=== PATIENT | male | born 1955 | race Two or more races ===

== ENCOUNTER 2023-12-01 13:26 | Inpatient (IN) | payer MEDICAID ==
[~2023-12-01] VITALS: Ht 165.1 cm; Wt 82.2 kg
[2023-12-01] MEDS ORDERED: LevETIRAcetam 1,000 MG in DEXTROSE 5%-WATER 100 ML IV ONE (13:30)
[2023-12-01] MEDS ORDERED: SODIUM CHLORIDE 0.9% 100 ML ONE (13:35)
[2023-12-01] MEDS ORDERED: IOHEXOL 350 MG/ML 100 ML VIAL ONE (13:35)
[2023-12-01 14:23] LABS: PROTHROMBIN TIME 10.9 SEC (9.4-11.6)
[2023-12-01 14:34] LABS: TROPONIN I-HIGH SENSITIVITY 5 ng/L (<76)
[2023-12-01] MEDS: PHENYTOIN SODIUM 1,000 MG in SODIUM CHLORIDE 0.9% 150 ML IV ONE (14:44)
[2023-12-01 16:08] LABS: CHLORIDE 106 mmol/L (98-107); POTASSIUM 3.5 mmol/L (3.5-5.1); SODIUM SERUM 140 mmol/L (136-145)
[2023-12-01 16:09] LABS: ANION GAP 10 mmol/L (8-16); CALCIUM, TOTAL 9.9 mg/dL (8.8-10.5); CARBON DIOXIDE 24 mmol/L (22-29); CREATININE 0.96 mg/dL (0.60-1.30); GLOMERULAR FILTR. RATE CALC > 60 mL/min (>60); GLUCOSE,RANDOM 137 mg/dL (70-110); HEMATOCRIT 40.9 % (41-53); HEMOGLOBIN 13.8 g/dL (13.5-17.5); MEAN CORPUSCULAR HEMOGLOBIN 29.8 pg (26.0-34.0); MEAN CORPUSCULAR HGB CONC 33.7 G/dL (31.0-37.0); MEAN CORPUSCULAR VOLUME 88 fL (80-100); PHOSPHORUS 2.6 mg/dL (2.5-4.9); PLATELET COUNT (AUTO) 159 K/uL (150-450); RED BLOOD CELL COUNT(AUTO) 4.63 MIL/uL (4.50-5.90); RED CELL DISTRIBUTION WIDTH 13.6 % (11.5-14.5); UREA NITROGEN, BLOOD 14 mg/dL (7-18); WHITE BLOOD COUNT (AUTO) 5.2 K/uL (4.5-11.0)
[2023-12-01 16:10] LABS: ALANINE AMINOTRANSFERASE 21 U/L (12-78); ALBUMIN 3.1 g/dL (3.4-5.0); ALKALINE PHOSPHATASE 102 U/L (46-116); ASPARTATE AMINOTRANSFERASE 19 U/L (15-37); BASOPHILS % (AUTO) 0.7 % (0.0-2.0); BILIRUBIN,TOTAL 0.3 mg/dL (0.1-1.0); CHOL/HDL RATIO 2.3 (4.2-7.3); CHOLESTEROL 123 mg/dL (131-200); EOSINOPHILS % (AUTO) 2.4 % (1.0-6.0); HDL CHOLESTEROL 54 mg/dL (40-60); LDL CHOL (CALC.) 59 mg/dL (0-130); LYMPHOCYTES # (AUTO) 2.2 K/uL (1.0-4.8); LYMPHOCYTES % (AUTO) 41.3 % (22.0-44.0); MONOCYTES # (AUTO) 0.3 K/uL (0.1-1.0); MONOCYTES % (AUTO) 5.7 % (2.0-9.0); NEUTROPHILS # (AUTO) 2.6 K/uL (1.8-7.7); NEUTROPHILS % (AUTO) 49.9 % (40.0-70.0); TRIGLYCERIDES 52 mg/dL (15-150)
[2023-12-01 16:11] LABS: ALCOHOL, BLOOD (SERUM) < 3 mg/dL (0-10)
[2023-12-01] MEDS ORDERED: MAGNESIUM HYDROXIDE SUSPENSION 30 ML UDCUP PO PRN (16:15)
[2023-12-01] MEDS ORDERED: ACETAMINOPHEN 325 MG TABLET PO PRN (16:15)
[2023-12-01] MEDS ORDERED: ONDANSETRON HCL 4 MG/2 ML VIAL IVP ONE (16:15)
[2023-12-01] MEDS ORDERED: MORPHINE SULFATE 2 MG/ML SYRINGE IVP PRN (16:15)
[2023-12-01] MEDS ORDERED: LORazepam 2 MG/ML VIAL IVP ONE (16:15)
[2023-12-01] MEDS ORDERED: ONDANSETRON HCL 4 MG/2 ML VIAL IVP PRN (16:15)
[2023-12-01] MEDS ORDERED: BISACODYL 10 MG RECTAL RECTAL SUPPOSITORY PR PRN (16:15)
[2023-12-01] MEDS ORDERED: HYDR50CA7 PO (16:35)
[2023-12-01] MEDS ORDERED: AMLO-258 PO (16:35)
[2023-12-01] MEDS ORDERED: PHEN100C10 PO (16:35)
[2023-12-01] MEDS ORDERED: LISI-893 PO (16:35)
[2023-12-01] MEDS ORDERED: FINA-27 PO (16:35)
[2023-12-01] MEDS ORDERED: OLAN7.5T22 PO (16:35)
[2023-12-01] MEDS ORDERED: TAMS0.4C94 PO (16:35)
[2023-12-01] MEDS ORDERED: ATOR20TA PO (16:35)
[2023-12-01] MEDS: LORazepam 2 MG/ML VIAL IVP ONE ×2 (16:38→18:35)
[2023-12-01] MEDS: ONDANSETRON HCL 4 MG/2 ML VIAL IVP ONE (16:38)
[2023-12-01] MEDS: SODIUM CHLORIDE 0.9% 1,000 ML IV ONE ×2 (16:39)
[2023-12-01 16:45] LABS: PHENYTOIN (DILANTIN) 45.5 mcg/mL (10.0-20.0)
[2023-12-01 17:51] LABS: APPEARANCE,URINE CLEAR (CLEAR); BILIRUBIN,URINE NEGATIVE (NEGATIVE); COLOR,URINE LIGHT YELLOW (YELLOW); GLUCOSE, URINE (UA) NEGATIVE (NEGATIVE); KETONES,URINE NEGATIVE (NEGATIVE); LEUKOCYTE ESTERASE ,URINE LARGE (NEGATIVE); NITRATE,URINE NEGATIVE (NEGATIVE); OCCULT BLOOD,URINE TRACE (NEGATIVE); PROTEIN,URINE TRACE mg/dL (NEGATIVE); SPECIFIC GRAVITIY, URINE 1.034 (1.003-1.030); UROBILINOGEN,URINE <=1.0 mg/dL (<=1.0)
[2023-12-01 18:04] LABS: ALCOHOL, URINE DRUG SCREEN NEGATIVE (NEGATIVE); AMPHET/METH SCREEN,URINE NEGATIVE (NEGATIVE); BARBITURATE SCREEN, URINE NEGATIVE (NEGATIVE); BENZODIAZEPINES SCREEN,URINE NEGATIVE (NEGATIVE); CANNABINOID SCREEN,URINE NEGATIVE (NEGATIVE); COCAINE SCREEN,URINE NEGATIVE (NEGATIVE); METHADONE SCREEN, URINE NEGATIVE (NEGATIVE); OPIATE SCREEN,URINE NEGATIVE (NEGATIVE); PHENCYCLIDINE SCREEN,URINE NEGATIVE (NEGATIVE)
[2023-12-01 18:23] LABS: BACTERIA,URINE Many /HPF (None Seen); RBC,URINE 0-2 /HPF (0-2); WBC,URINE 26-50 /HPF (0-5)
[2023-12-01] MEDS: CefTRIAXone 1 GM/DEXTROSE 50 ML IV ONE (18:35)
[2023-12-01 20:02] LABS: TROPONIN I-HIGH SENSITIVITY 8 ng/L (<76)
[2023-12-01] MEDS: DOCUSATE SODIUM 100 MG CAPSULE PO SCH (20:28)
[2023-12-01 21:05] VITALS: BP 146/75; PULSE 79; RESP 18; TEMP 97.6; O2SAT 95
[2023-12-01] MEDS: HEPARIN SODIUM,PORCINE 5,000 UNITS/ML VIAL SQ SCH (23:40)
[2023-12-02] MEDS: LORazepam 2 MG/ML VIAL IVP ONE (01:29)
[2023-12-02 01:57] LABS: TROPONIN I-HIGH SENSITIVITY 12 ng/L (<76)
[2023-12-02 04:05] VITALS: BP 141/98; PULSE 96; RESP 20; TEMP 98; O2SAT 97
[2023-12-02 07:17] LABS: BASOPHILS % (AUTO) 0.5 % (0.0-2.0); EOSINOPHILS % (AUTO) 1.4 % (1.0-6.0); HEMATOCRIT 42.4 % (41-53); HEMOGLOBIN 14.6 g/dL (13.5-17.5); LYMPHOCYTES # (AUTO) 2.1 K/uL (1.0-4.8); LYMPHOCYTES % (AUTO) 27.7 % (22.0-44.0); MEAN CORPUSCULAR HEMOGLOBIN 30.1 pg (26.0-34.0); MEAN CORPUSCULAR HGB CONC 34.3 G/dL (31.0-37.0); MEAN CORPUSCULAR VOLUME 88 fL (80-100); MONOCYTES # (AUTO) 0.4 K/uL (0.1-1.0); MONOCYTES % (AUTO) 5.6 % (2.0-9.0); NEUTROPHILS # (AUTO) 4.8 K/uL (1.8-7.7); NEUTROPHILS % (AUTO) 64.8 % (40.0-70.0); PLATELET COUNT (AUTO) 154 K/uL (150-450); RED BLOOD CELL COUNT(AUTO) 4.83 MIL/uL (4.50-5.90); RED CELL DISTRIBUTION WIDTH 13.6 % (11.5-14.5); WHITE BLOOD COUNT (AUTO) 7.4 K/uL (4.5-11.0)
[2023-12-02 07:29] LABS: ANION GAP 11 mmol/L (8-16); CALCIUM, TOTAL 9.9 mg/dL (8.8-10.5); CARBON DIOXIDE 23 mmol/L (22-29); CHLORIDE 104 mmol/L (98-107); CREATININE 0.89 mg/dL (0.60-1.30); GLOMERULAR FILTR. RATE CALC > 60 mL/min (>60); GLUCOSE,RANDOM 92 mg/dL (70-110); POTASSIUM 3.5 mmol/L (3.5-5.1); SODIUM SERUM 138 mmol/L (136-145); UREA NITROGEN, BLOOD 9 mg/dL (7-18)
[2023-12-02 07:37] VITALS: BP 168/89; PULSE 83; RESP 19; TEMP 98.1; O2SAT 95
[2023-12-02] MEDS: PANTOPRAZOLE SODIUM 40 MG DR TABLET PO SCH (08:39)
[2023-12-02 09:31] VITALS: BP 161/96; PULSE 89; RESP 20; TEMP 98.3; O2SAT 96
[2023-12-02 11:02] LABS: PHENYTOIN (DILANTIN) 49.1 mcg/mL (10.0-20.0)
[2023-12-02 11:54] VITALS: BP 152/91; PULSE 86; RESP 18; TEMP 98.3; O2SAT 97
[2023-12-02] MEDS ORDERED: LORazepam 2 MG/ML VIAL IVP PRN (13:15)
[2023-12-02] MEDS: SODIUM CHLORIDE 0.9% 1,000 ML IV ONE (13:25)
[2023-12-02 19:31] VITALS: BP 165/93; PULSE 85; RESP 19; TEMP 97.9; O2SAT 95
[2023-12-03 00:40] VITALS: BP 156/89; PULSE 81; RESP 18; TEMP 98.3; O2SAT 92
[2023-12-03 03:30] VITALS: BP 157/92; PULSE 85; RESP 19; TEMP 98.5; O2SAT 94
[2023-12-03 07:12] VITALS: BP 151/92; PULSE 81; RESP 18; TEMP 98; O2SAT 98
[2023-12-03 08:33] LABS: BASOPHILS % (AUTO) 1.1 % (0.0-2.0); EOSINOPHILS % (AUTO) 2.7 % (1.0-6.0); HEMATOCRIT 42.1 % (41-53); HEMOGLOBIN 14.4 g/dL (13.5-17.5); LYMPHOCYTES # (AUTO) 2.5 K/uL (1.0-4.8); LYMPHOCYTES % (AUTO) 38.6 % (22.0-44.0); MEAN CORPUSCULAR HEMOGLOBIN 30.3 pg (26.0-34.0); MEAN CORPUSCULAR HGB CONC 34.3 G/dL (31.0-37.0); MEAN CORPUSCULAR VOLUME 88 fL (80-100); MONOCYTES # (AUTO) 0.5 K/uL (0.1-1.0); MONOCYTES % (AUTO) 7.5 % (2.0-9.0); NEUTROPHILS # (AUTO) 3.2 K/uL (1.8-7.7); NEUTROPHILS % (AUTO) 50.1 % (40.0-70.0); PLATELET COUNT (AUTO) 138 K/uL (150-450); RED BLOOD CELL COUNT(AUTO) 4.77 MIL/uL (4.50-5.90); RED CELL DISTRIBUTION WIDTH 13.5 % (11.5-14.5); WHITE BLOOD COUNT (AUTO) 6.4 K/uL (4.5-11.0)
[2023-12-03 08:43] LABS: ANION GAP 11 mmol/L (8-16); CALCIUM, TOTAL 9.6 mg/dL (8.8-10.5); CARBON DIOXIDE 22 mmol/L (22-29); CHLORIDE 102 mmol/L (98-107); CREATININE 0.95 mg/dL (0.60-1.30); GLOMERULAR FILTR. RATE CALC > 60 mL/min (>60); GLUCOSE,RANDOM 76 mg/dL (70-110); POTASSIUM 3.6 mmol/L (3.5-5.1); SODIUM SERUM 135 mmol/L (136-145); UREA NITROGEN, BLOOD 13 mg/dL (7-18)
[2023-12-03 12:07] VITALS: BP 148/90; PULSE 80; RESP 18; TEMP 98; O2SAT 95
[2023-12-03] MEDS: AmLODIPine BESYLATE 5 MG TABLET PO SCH (12:20)
[2023-12-03] MEDS: SODIUM CHLORIDE 0.9% 1,000 ML IV ONE (12:21)
[2023-12-03 14:54] VITALS: BP 129/74; PULSE 82; RESP 18; TEMP 98.3; O2SAT 98
[2023-12-03] MEDS: HYDROCODONE/ACETAMINOPHEN 5-325 MG TABLET PO PRN (20:08)
[2023-12-03 20:38] VITALS: BP 145/104; PULSE 82; RESP 19; TEMP 97.9; O2SAT 93
[2023-12-03] MEDS: LORazepam 2 MG/ML VIAL IM PRN (22:14)
[2023-12-04 00:26] VITALS: BP 151/91; PULSE 70; RESP 19; TEMP 98; O2SAT 93
[2023-12-04 07:06] LABS: BASOPHILS % (AUTO) 0.7 % (0.0-2.0); HEMATOCRIT 38.6 % (41-53); HEMOGLOBIN 13.5 g/dL (13.5-17.5); LYMPHOCYTES % (AUTO) 37.7 % (22.0-44.0); MEAN CORPUSCULAR HEMOGLOBIN 30.4 pg (26.0-34.0); MEAN CORPUSCULAR HGB CONC 34.9 G/dL (31.0-37.0); MEAN CORPUSCULAR VOLUME 87 fL (80-100); MONOCYTES # (AUTO) 0.4 K/uL (0.1-1.0); MONOCYTES % (AUTO) 8.5 % (2.0-9.0); NEUTROPHILS # (AUTO) 2.6 K/uL (1.8-7.7); NEUTROPHILS % (AUTO) 49.1 % (40.0-70.0); PLATELET COUNT (AUTO) 135 K/uL (150-450); RED BLOOD CELL COUNT(AUTO) 4.43 MIL/uL (4.50-5.90); RED CELL DISTRIBUTION WIDTH 13.4 % (11.5-14.5); WHITE BLOOD COUNT (AUTO) 5.2 K/uL (4.5-11.0)
[2023-12-04 07:24] LABS: ANION GAP 10 mmol/L (8-16); CALCIUM, TOTAL 9.9 mg/dL (8.8-10.5); CARBON DIOXIDE 23 mmol/L (22-29); CHLORIDE 103 mmol/L (98-107); CREATININE 0.98 mg/dL (0.60-1.30); GLOMERULAR FILTR. RATE CALC > 60 mL/min (>60); GLUCOSE,RANDOM 84 mg/dL (70-110); POTASSIUM 3.6 mmol/L (3.5-5.1); SODIUM SERUM 136 mmol/L (136-145); UREA NITROGEN, BLOOD 19 mg/dL (7-18)
[2023-12-04 07:40] VITALS: BP 132/81; PULSE 77; RESP 18; TEMP 98; O2SAT 99
[2023-12-04 07:53] LABS: PHENYTOIN (DILANTIN) 37.3 mcg/mL (10.0-20.0)
[2023-12-04] MEDS: SODIUM CHLORIDE 0.9% 1,000 ML IV SCH (10:50)
[2023-12-04 11:48] VITALS: BP 150/82; PULSE 73; RESP 18; TEMP 97.9; O2SAT 95
[2023-12-04 15:32] VITALS: BP 140/75; PULSE 80; RESP 19; TEMP 98; O2SAT 96
[2023-12-04 20:57] VITALS: BP 160/83; PULSE 77; RESP 18; TEMP 97.5; O2SAT 95
[2023-12-04] MEDS: ZOLPIDEM TARTRATE 5 MG TABLET PO PRN (21:08)
[2023-12-05] VITALS (8 sets, daily range): BP systolic 137–157; BP diastolic 58–95; PULSE 76–84; RESP 17–20; TEMP 97.5–98.2; O2SAT 95–97
[2023-12-05 09:14] LABS: BASOPHILS % (AUTO) 0.7 % (0.0-2.0); EOSINOPHILS % (AUTO) 3.1 % (1.0-6.0); HEMOGLOBIN 13.5 g/dL (13.5-17.5); LYMPHOCYTES # (AUTO) 1.6 K/uL (1.0-4.8); LYMPHOCYTES % (AUTO) 31.7 % (22.0-44.0); MEAN CORPUSCULAR HEMOGLOBIN 30.2 pg (26.0-34.0); MEAN CORPUSCULAR HGB CONC 34.6 G/dL (31.0-37.0); MEAN CORPUSCULAR VOLUME 87 fL (80-100); MONOCYTES # (AUTO) 0.4 K/uL (0.1-1.0); MONOCYTES % (AUTO) 7.3 % (2.0-9.0); NEUTROPHILS # (AUTO) 2.9 K/uL (1.8-7.7); NEUTROPHILS % (AUTO) 57.2 % (40.0-70.0); PLATELET COUNT (AUTO) 130 K/uL (150-450); RED BLOOD CELL COUNT(AUTO) 4.46 MIL/uL (4.50-5.90); RED CELL DISTRIBUTION WIDTH 13.6 % (11.5-14.5)
[2023-12-05 09:25] LABS: ANION GAP 11 mmol/L (8-16); CALCIUM, TOTAL 9.5 mg/dL (8.8-10.5); CARBON DIOXIDE 22 mmol/L (22-29); CHLORIDE 107 mmol/L (98-107); CREATININE 0.87 mg/dL (0.60-1.30); GLOMERULAR FILTR. RATE CALC > 60 mL/min (>60); GLUCOSE,RANDOM 88 mg/dL (70-110); POTASSIUM 3.8 mmol/L (3.5-5.1); SODIUM SERUM 140 mmol/L (136-145); UREA NITROGEN, BLOOD 17 mg/dL (7-18)
[2023-12-05] MEDS ORDERED: MELATONIN 3 MG TABLET PO SCH (11:00)
[2023-12-05] MEDS: CefTRIAXone 1 GM/DEXTROSE 50 ML IV SCH (12:23)
[2023-12-06] VITALS (10 sets, daily range): BP systolic 130–186; BP diastolic 69–97; PULSE 75–84; RESP 18–20; TEMP 97.5–98; O2SAT 94–97
[2023-12-06 06:36] LABS: GLUCOMETER DEV NAME(LOC) 5N.2C; GLUCOSE,POINT OF CARE 93 MG/DL (70-110)
[2023-12-06 06:48] LABS: BASOPHILS % (AUTO) 1.1 % (0.0-2.0); EOSINOPHILS % (AUTO) 4.4 % (1.0-6.0); HEMATOCRIT 36.2 % (41-53); HEMOGLOBIN 12.6 g/dL (13.5-17.5); LYMPHOCYTES # (AUTO) 1.6 K/uL (1.0-4.8); LYMPHOCYTES % (AUTO) 43.4 % (22.0-44.0); MEAN CORPUSCULAR HEMOGLOBIN 30.4 pg (26.0-34.0); MEAN CORPUSCULAR HGB CONC 34.8 G/dL (31.0-37.0); MEAN CORPUSCULAR VOLUME 87 fL (80-100); MONOCYTES # (AUTO) 0.3 K/uL (0.1-1.0); MONOCYTES % (AUTO) 7.5 % (2.0-9.0); NEUTROPHILS # (AUTO) 1.6 K/uL (1.8-7.7); NEUTROPHILS % (AUTO) 43.6 % (40.0-70.0); PLATELET COUNT (AUTO) 123 K/uL (150-450); RED BLOOD CELL COUNT(AUTO) 4.15 MIL/uL (4.50-5.90); RED CELL DISTRIBUTION WIDTH 13.8 % (11.5-14.5); WHITE BLOOD COUNT (AUTO) 3.8 K/uL (4.5-11.0)
[2023-12-06 06:58] LABS: ANION GAP 8 mmol/L (8-16); CALCIUM, TOTAL 9.5 mg/dL (8.8-10.5); CARBON DIOXIDE 22 mmol/L (22-29); CHLORIDE 108 mmol/L (98-107); CREATININE 0.79 mg/dL (0.60-1.30); GLOMERULAR FILTR. RATE CALC > 60 mL/min (>60); GLUCOSE,RANDOM 83 mg/dL (70-110); POTASSIUM 3.7 mmol/L (3.5-5.1); SODIUM SERUM 138 mmol/L (136-145); UREA NITROGEN, BLOOD 13 mg/dL (7-18)
[2023-12-06] MEDS: AmLODIPine BESYLATE 5 MG TABLET PO ONE (10:06)
[2023-12-06] MEDS ORDERED: CIPR250T6 PO (10:06)
[2023-12-06] MEDS ORDERED: LEVE250T81 PO (10:06)
[2023-12-06] MEDS: CloNIDine HCL 0.1 MG TABLET PO PRN (17:17)
[2023-12-06] MEDS: MELATONIN 5 MG TABLET PO PRN (21:41)
[2023-12-07] VITALS: BP 148/87; PULSE 81; RESP 19; TEMP 97.2; O2SAT 98
[2023-12-07 06:34] VITALS: BP 149/90; PULSE 73; RESP 18; TEMP 97.7; O2SAT 95
[2023-12-07 07:02] LABS: BASOPHILS % (AUTO) 0.8 % (0.0-2.0); EOSINOPHILS % (AUTO) 4.4 % (1.0-6.0); HEMATOCRIT 37.2 % (41-53); HEMOGLOBIN 12.9 g/dL (13.5-17.5); LYMPHOCYTES # (AUTO) 1.4 K/uL (1.0-4.8); LYMPHOCYTES % (AUTO) 35.6 % (22.0-44.0); MEAN CORPUSCULAR HGB CONC 34.8 G/dL (31.0-37.0); MEAN CORPUSCULAR VOLUME 86 fL (80-100); MONOCYTES # (AUTO) 0.3 K/uL (0.1-1.0); MONOCYTES % (AUTO) 7.4 % (2.0-9.0); NEUTROPHILS # (AUTO) 2.1 K/uL (1.8-7.7); NEUTROPHILS % (AUTO) 51.8 % (40.0-70.0); PLATELET COUNT (AUTO) 139 K/uL (150-450); RED BLOOD CELL COUNT(AUTO) 4.31 MIL/uL (4.50-5.90); RED CELL DISTRIBUTION WIDTH 14.2 % (11.5-14.5)
[2023-12-07 07:13] LABS: ANION GAP 8 mmol/L (8-16); CALCIUM, TOTAL 10.1 mg/dL (8.8-10.5); CARBON DIOXIDE 24 mmol/L (22-29); CHLORIDE 105 mmol/L (98-107); GLOMERULAR FILTR. RATE CALC > 60 mL/min (>60); GLUCOSE,RANDOM 90 mg/dL (70-110); POTASSIUM 3.6 mmol/L (3.5-5.1); SODIUM SERUM 137 mmol/L (136-145); UREA NITROGEN, BLOOD 14 mg/dL (7-18)
[2023-12-07] MEDS: AmLODIPine BESYLATE 10 MG TABLET PO SCH (08:11)
[2023-12-07 08:14] VITALS: BP 149/83; PULSE 77; RESP 18; TEMP 97.5; O2SAT 97
[2023-12-07 11:33] VITALS: BP 150/79; PULSE 82; RESP 19; TEMP 98; O2SAT 94
[2023-12-07 16:21] VITALS: BP 168/90; PULSE 78; RESP 19; TEMP 97.7; O2SAT 97
[2023-12-07 20:42] VITALS: BP 160/88; PULSE 80; RESP 19; TEMP 97.7; O2SAT 96
[2023-12-07] MEDS: CIPROFLOXACIN HCL 250 MG TABLET PO SCH (20:43)
[2023-12-07] MEDS: LevETIRAcetam 500 MG TABLET PO SCH (20:43)
[2023-12-08 04:19] VITALS: BP 140/70; PULSE 72; RESP 18; TEMP 97.9; O2SAT 95
[2023-12-08 11:23] VITALS: BP 144/67; PULSE 65; RESP 19; TEMP 98; O2SAT 97
[2023-12-08 12:31] LABS: BASOPHILS % (AUTO) 0.9 % (0.0-2.0); EOSINOPHILS % (AUTO) 3.7 % (1.0-6.0); HEMATOCRIT 38.1 % (41-53); HEMOGLOBIN 12.9 g/dL (13.5-17.5); LYMPHOCYTES # (AUTO) 1.3 K/uL (1.0-4.8); LYMPHOCYTES % (AUTO) 37.3 % (22.0-44.0); MEAN CORPUSCULAR HEMOGLOBIN 29.8 pg (26.0-34.0); MEAN CORPUSCULAR HGB CONC 33.8 G/dL (31.0-37.0); MEAN CORPUSCULAR VOLUME 88 fL (80-100); MONOCYTES # (AUTO) 0.3 K/uL (0.1-1.0); MONOCYTES % (AUTO) 9.5 % (2.0-9.0); NEUTROPHILS # (AUTO) 1.7 K/uL (1.8-7.7); NEUTROPHILS % (AUTO) 48.6 % (40.0-70.0); PLATELET COUNT (AUTO) 142 K/uL (150-450); RED BLOOD CELL COUNT(AUTO) 4.33 MIL/uL (4.50-5.90); WHITE BLOOD COUNT (AUTO) 3.5 K/uL (4.5-11.0)
[2023-12-08 14:25] LABS: ALANINE AMINOTRANSFERASE 32 U/L (12-78); ALBUMIN 2.8 g/dL (3.4-5.0); ALKALINE PHOSPHATASE 101 U/L (46-116); ANION GAP 9 mmol/L (8-16); ASPARTATE AMINOTRANSFERASE 30 U/L (15-37); BILIRUBIN,TOTAL 0.2 mg/dL (0.1-1.0); CALCIUM, TOTAL 10.1 mg/dL (8.8-10.5); CARBON DIOXIDE 24 mmol/L (22-29); CHLORIDE 105 mmol/L (98-107); CREATININE 0.78 mg/dL (0.60-1.30); GLOMERULAR FILTR. RATE CALC > 60 mL/min (>60); GLUCOSE,RANDOM 94 mg/dL (70-110); POTASSIUM 4.1 mmol/L (3.5-5.1); SODIUM SERUM 138 mmol/L (136-145); TOTAL PROTEIN, SERUM 7.4 g/dL (6.4-8.2); UREA NITROGEN, BLOOD 16 mg/dL (7-18)
== END 2023-12-08 15:20 | DRG 52 ==
LOC: EDBD 13:26 → EMS 13:26 → EDH 15:55 → 5N 20:53 → 5S 12-02 02:14
PROVIDERS: ADMIT Internal Medicine; ATTEND Internal Medicine
DX: G92.8 Other toxic encephalopathy (principal); F29 Unspecified psychosis not due to a substance or known physiological condition; E66.9 Obesity, unspecified; T42.0X5A Adverse effect of hydantoin derivatives, initial encounter; E78.5 Hyperlipidemia, unspecified; N40.0 Benign prostatic hyperplasia without lower urinary tract symptoms; I10 Essential (primary) hypertension; G40.909 Epilepsy, unspecified, not intractable, without status epilepticus; N39.0 Urinary tract infection, site not specified; Z68.30 Body mass index [BMI] 30.0-30.9, adult
CPT/HCPCS: 70496; 70498; 71045; 80048; 80053; 80061; 80185; 80307; 81001; 82948; 82962; 83735; 84100; 84484; 85025; 85610; 85730; 87086; 87186; 92610; 93005; 97116; 97163; 97167; 97530; 97535; 99291; G0480; J0696; J0712; J1165; J1644; J2060; J2405; J7030; J7050; J7060; 36415-L1; 36415-TC; 70450; 70450-TC

== ENCOUNTER 2023-12-14 05:41 | Emergency (ER) | payer MEDICAID ==
[~2023-12-14] VITALS: Ht 180.3 cm; Wt 95.0 kg
[~2023-12-14 05:41] MED LIST: AMLO-258 PO; ATOR20TA PO; CIPR250T6 PO; FINA-27 PO; LEVE250T81 PO; TAMS0.4C94 PO
[2023-12-14 05:45] VITALS: TEMP 98.6
[2023-12-14 07:11] LABS: BASOPHILS % (AUTO) 0.6 % (0.0-2.0); EOSINOPHILS % (AUTO) 2.2 % (1.0-6.0); HEMATOCRIT 43.5 % (41-53); HEMOGLOBIN 14.8 g/dL (13.5-17.5); LYMPHOCYTES # (AUTO) 1.1 K/uL (1.0-4.8); LYMPHOCYTES % (AUTO) 21.4 % (22.0-44.0); MEAN CORPUSCULAR HEMOGLOBIN 30.1 pg (26.0-34.0); MEAN CORPUSCULAR HGB CONC 34.1 G/dL (31.0-37.0); MEAN CORPUSCULAR VOLUME 88 fL (80-100); MONOCYTES # (AUTO) 0.3 K/uL (0.1-1.0); MONOCYTES % (AUTO) 6.4 % (2.0-9.0); NEUTROPHILS # (AUTO) 3.4 K/uL (1.8-7.7); NEUTROPHILS % (AUTO) 69.4 % (40.0-70.0); PLATELET COUNT (AUTO) 115 K/uL (150-450); RED BLOOD CELL COUNT(AUTO) 4.92 MIL/uL (4.50-5.90); RED CELL DISTRIBUTION WIDTH 14.9 % (11.5-14.5); WHITE BLOOD COUNT (AUTO) 4.9 K/uL (4.5-11.0)
[2023-12-14 07:28] LABS: ANION GAP 9 mmol/L (8-16); CARBON DIOXIDE 24 mmol/L (22-29); CHLORIDE 104 mmol/L (98-107); CREATININE 0.86 mg/dL (0.60-1.30); GLOMERULAR FILTR. RATE CALC > 60 mL/min (>60); GLUCOSE,RANDOM 94 mg/dL (70-110); SODIUM SERUM 137 mmol/L (136-145); UREA NITROGEN, BLOOD 14 mg/dL (7-18)
[2023-12-14 07:32] LABS: PHENYTOIN (DILANTIN) < 0.5 mcg/mL (10.0-20.0)
[2023-12-14 07:36] LABS: RBC MORPHOLOGY COMMENT NORMAL RBC MORPH
[2023-12-14] MEDS: LevETIRAcetam 1,500 MG in DEXTROSE 5%-WATER 100 ML IV ONE (08:02)
[2023-12-14] MEDS: PHENYTOIN SODIUM 100 MG ER CAPSULE PO ONE (08:16)
[2023-12-14] MEDS ORDERED: LEVE250T81 PO (09:34)
[2023-12-14] MEDS ORDERED: PHEN100C10 PO (09:34)
[2023-12-14 09:40] VITALS: BP 141/89; PULSE 76; RESP 18; O2SAT 97
== END 2023-12-14 09:54 | disposition home or self-care (01) ==
LOC: EMS 05:41
DX: G40.909 Epilepsy, unspecified, not intractable, without status epilepticus (principal); E78.00 Pure hypercholesterolemia, unspecified
CPT/HCPCS: 99284; 96365; 80048; 80185; 85025; 36415; J0712; J7060

== ENCOUNTER 2024-02-20 11:59 | Emergency (ER) | payer MEDICAID, OTHER ==
[~2024-02-20] VITALS: Ht 180.3 cm; Wt 84.1 kg
[~2024-02-20 11:59] MED LIST changes: -CIPR250T6 PO; +LEVE-71 PO; -LEVE250T81 PO; +MIRT7.5T11 PO; +PHEN100C10 PO
[2024-02-20 14:45] LABS: APPEARANCE,URINE CLEAR (CLEAR); BILIRUBIN,URINE NEGATIVE (NEGATIVE); COLOR,URINE YELLOW (YELLOW); GLUCOSE, URINE (UA) NEGATIVE (NEGATIVE); KETONES,URINE NEGATIVE (NEGATIVE); LEUKOCYTE ESTERASE ,URINE NEGATIVE (NEGATIVE); NITRATE,URINE NEGATIVE (NEGATIVE); OCCULT BLOOD,URINE TRACE (NEGATIVE); PROTEIN,URINE TRACE mg/dL (NEGATIVE); SPECIFIC GRAVITIY, URINE 1.027 (1.003-1.030)
[2024-02-20] MEDS: KETOROLAC TROMETHAMINE 30 MG/ML VIAL IM ONE (14:54)
[2024-02-20] MEDS: LIDOCAINE 5% TRANSDERMAL PATCH TD ONE (14:55)
[2024-02-20 15:13] LABS: BACTERIA,URINE None Seen /HPF (None Seen); RBC,URINE None Seen /HPF (0-2); SQUAMOUS EPITHELIAL CELL,UR None Seen /LPF (None Seen); WBC,URINE None Seen /HPF (0-5)
[2024-02-20 15:25] VITALS: BP 146/75; PULSE 92; RESP 18; TEMP 98.4; O2SAT 98
== END 2024-02-20 15:48 | disposition left against medical advice (07) ==
LOC: EMS 11:59
DX: M54.50 Low back pain, unspecified (principal); R10.31 Right lower quadrant pain; I10 Essential (primary) hypertension; E78.00 Pure hypercholesterolemia, unspecified; N40.0 Benign prostatic hyperplasia without lower urinary tract symptoms; F17.210 Nicotine dependence, cigarettes, uncomplicated; Z79.899 Other long term (current) drug therapy
CPT/HCPCS: 99283; 81001; 96372; J1885

== ENCOUNTER 2024-02-27 11:51 | Emergency (ER) | payer MEDICARE, OTHER ==
[~2024-02-27] VITALS: Ht 183.5 cm; Wt 85.0 kg
[2024-02-27 12:00] VITALS: TEMP 98.6
[2024-02-27] MEDS ORDERED: IOHEXOL 350 MG/ML 100 ML VIAL ONE (12:36)
[2024-02-27] MEDS ORDERED: SODIUM CHLORIDE 0.9% 100 ML ONE (12:37)
[2024-02-27] MEDS: MORPHINE SULFATE 2 MG/ML SYRINGE IVP ONE (12:47)
[2024-02-27] MEDS: KETOROLAC TROMETHAMINE 30 MG/ML VIAL IVP ONE (12:50)
[2024-02-27] MEDS: LIDOCAINE 5% TRANSDERMAL PATCH TD ONE (12:50)
[2024-02-27 13:16] LABS: BASOPHILS % (AUTO) 1.3 % (0.0-2.0); EOSINOPHILS % (AUTO) 3.2 % (1.0-6.0); HEMATOCRIT 45.2 % (41-53); HEMOGLOBIN 15.5 g/dL (13.5-17.5); LYMPHOCYTES % (AUTO) 34.4 % (22.0-44.0); MEAN CORPUSCULAR HEMOGLOBIN 30.2 pg (26.0-34.0); MEAN CORPUSCULAR HGB CONC 34.3 G/dL (31.0-37.0); MEAN CORPUSCULAR VOLUME 88 fL (80-100); MONOCYTES # (AUTO) 0.3 K/uL (0.1-1.0); MONOCYTES % (AUTO) 5.5 % (2.0-9.0); NEUTROPHILS # (AUTO) 3.2 K/uL (1.8-7.7); NEUTROPHILS % (AUTO) 55.6 % (40.0-70.0); PLATELET COUNT (AUTO) 119 K/uL (150-450); RED BLOOD CELL COUNT(AUTO) 5.12 MIL/uL (4.50-5.90); WHITE BLOOD COUNT (AUTO) 5.8 K/uL (4.5-11.0)
[2024-02-27 13:26] LABS: ANION GAP 7 mmol/L (8-16); CALCIUM, TOTAL 10.4 mg/dL (8.8-10.5); CARBON DIOXIDE 23 mmol/L (22-29); CHLORIDE 109 mmol/L (98-107); CREATININE 0.92 mg/dL (0.60-1.30); GLOMERULAR FILTR. RATE CALC > 60 mL/min (>60); GLUCOSE,RANDOM 100 mg/dL (70-110); POTASSIUM 4.1 mmol/L (3.5-5.1); SODIUM SERUM 139 mmol/L (136-145); UREA NITROGEN, BLOOD 26 mg/dL (7-18)
[2024-02-27 13:32] LABS: ALANINE AMINOTRANSFERASE 20 U/L (12-78); ALBUMIN 3.4 g/dL (3.4-5.0); ALKALINE PHOSPHATASE 89 U/L (46-116); ASPARTATE AMINOTRANSFERASE 20 U/L (15-37); BILIRUBIN,TOTAL 1.1 mg/dL (0.1-1.0); LIPASE 43 U/L (16-77); TOTAL PROTEIN, SERUM 7.5 g/dL (6.4-8.2)
[2024-02-27 13:53] LABS: APPEARANCE,URINE CLEAR (CLEAR); BILIRUBIN,URINE NEGATIVE (NEGATIVE); COLOR,URINE YELLOW (YELLOW); GLUCOSE, URINE (UA) NEGATIVE (NEGATIVE); KETONES,URINE NEGATIVE (NEGATIVE); LEUKOCYTE ESTERASE ,URINE NEGATIVE (NEGATIVE); NITRATE,URINE NEGATIVE (NEGATIVE); OCCULT BLOOD,URINE MODERATE (NEGATIVE); PROTEIN,URINE 30-70 mg/dL (NEGATIVE); SPECIFIC GRAVITIY, URINE 1.029 (1.003-1.030); UROBILINOGEN,URINE <=1.0 mg/dL (<=1.0)
[2024-02-27 14:00] VITALS: BP 132/81; PULSE 88; RESP 18; O2SAT 97
[2024-02-27 14:13] LABS: BACTERIA,URINE None Seen /HPF (None Seen); SQUAMOUS EPITHELIAL CELL,UR Rare /LPF (None Seen); WBC,URINE 0-2 /HPF (0-5)
[2024-02-27] MEDS ORDERED: ACET-3385 PO (14:51)
[2024-02-27] MEDS ORDERED: LIDO700A15 TP (14:51)
== END 2024-02-27 15:18 | disposition home or self-care (01) ==
LOC: EMS 12:57
DX: R10.31 Right lower quadrant pain (principal); M54.16 Radiculopathy, lumbar region; I10 Essential (primary) hypertension; E78.00 Pure hypercholesterolemia, unspecified; F17.210 Nicotine dependence, cigarettes, uncomplicated; N40.0 Benign prostatic hyperplasia without lower urinary tract symptoms; K74.60 Unspecified cirrhosis of liver; Z79.899 Other long term (current) drug therapy
CPT/HCPCS: 99285; 74177; 96374; 96375; 80048; 80076; 81001; 83690; 85025; 36415; Q9967; J1885; J2270; J7050

== ENCOUNTER 2024-03-02 09:20 | Emergency (ER) | payer MEDICARE, OTHER ==
[~2024-03-02] VITALS: Ht 175.3 cm; Wt 72.7 kg
[~2024-03-02 09:20] MED LIST changes: +ACET-3385 PO; +LIDO700A15 TP
[2024-03-02 09:25] VITALS: TEMP 98
[2024-03-02 11:10] LABS: APPEARANCE,URINE CLEAR (CLEAR); BILIRUBIN,URINE NEGATIVE (NEGATIVE); COLOR,URINE YELLOW (YELLOW); GLUCOSE, URINE (UA) NEGATIVE (NEGATIVE); KETONES,URINE NEGATIVE (NEGATIVE); LEUKOCYTE ESTERASE ,URINE NEGATIVE (NEGATIVE); NITRATE,URINE NEGATIVE (NEGATIVE); OCCULT BLOOD,URINE TRACE (NEGATIVE); PH,URINE 5.5 (5.0-8.0); PROTEIN,URINE 30-70 mg/dL (NEGATIVE); SPECIFIC GRAVITIY, URINE 1.031 (1.003-1.030); UROBILINOGEN,URINE <=1.0 mg/dL (<=1.0)
[2024-03-02 11:25] LABS: RBC,URINE 0-2 /HPF (0-2)
[2024-03-02 11:26] LABS: BACTERIA,URINE Moderate /HPF (None Seen)
[2024-03-02] MEDS ORDERED: CEPH-558 PO (11:46)
[2024-03-02] MEDS ORDERED: TAMS0.4C94 PO (11:54)
[2024-03-02 13:15] VITALS: BP 125/81; PULSE 95; RESP 18; O2SAT 100
== END 2024-03-02 13:40 | disposition home or self-care (01) ==
LOC: EMS 09:21
DX: N39.0 Urinary tract infection, site not specified (principal); R33.9 Retention of urine, unspecified; I10 Essential (primary) hypertension; E78.00 Pure hypercholesterolemia, unspecified; F17.210 Nicotine dependence, cigarettes, uncomplicated; Z79.899 Other long term (current) drug therapy
CPT/HCPCS: 51702; 81001; 87077; 87086; 87186; 99284; Z7502

== ENCOUNTER 2024-03-04 08:15 | Emergency (ER) | payer MEDICARE, OTHER ==
[~2024-03-04] VITALS: Ht 182.9 cm; Wt 84.0 kg
[~2024-03-04 08:15] MED LIST changes: +CEPH-558 PO
[2024-03-04 08:25] VITALS: TEMP 97.9
[2024-03-04 09:14] LABS: EOSINOPHILS % (AUTO) 2.2 % (1.0-6.0); HEMATOCRIT 45.4 % (41-53); HEMOGLOBIN 15.7 g/dL (13.5-17.5); LYMPHOCYTES # (AUTO) 1.9 K/uL (1.0-4.8); LYMPHOCYTES % (AUTO) 22.2 % (22.0-44.0); MEAN CORPUSCULAR HEMOGLOBIN 30.5 pg (26.0-34.0); MEAN CORPUSCULAR HGB CONC 34.6 G/dL (31.0-37.0); MEAN CORPUSCULAR VOLUME 88 fL (80-100); MONOCYTES # (AUTO) 0.4 K/uL (0.1-1.0); NEUTROPHILS % (AUTO) 69.6 % (40.0-70.0); PLATELET COUNT (AUTO) 178 K/uL (150-450); RED BLOOD CELL COUNT(AUTO) 5.16 MIL/uL (4.50-5.90); RED CELL DISTRIBUTION WIDTH 14.4 % (11.5-14.5); WHITE BLOOD COUNT (AUTO) 8.6 K/uL (4.5-11.0)
[2024-03-04 09:20] LABS: ANION GAP 11 mmol/L (8-16); CALCIUM, TOTAL 11.1 mg/dL (8.8-10.5); CARBON DIOXIDE 20 mmol/L (22-29); CHLORIDE 106 mmol/L (98-107); CREATININE 1.13 mg/dL (0.60-1.30); GLOMERULAR FILTR. RATE CALC > 60 mL/min (>60); GLUCOSE,RANDOM 103 mg/dL (70-110); POTASSIUM 4.1 mmol/L (3.5-5.1); SODIUM SERUM 137 mmol/L (136-145); UREA NITROGEN, BLOOD 23 mg/dL (7-18)
[2024-03-04 10:03] LABS: APPEARANCE,URINE TURBID (CLEAR); BILIRUBIN,URINE NEGATIVE (NEGATIVE); COLOR,URINE DARK YELLOW (YELLOW); GLUCOSE, URINE (UA) NEGATIVE (NEGATIVE); KETONES,URINE TRACE mg/dL (NEGATIVE); LEUKOCYTE ESTERASE ,URINE LARGE (NEGATIVE); NITRATE,URINE NEGATIVE (NEGATIVE); OCCULT BLOOD,URINE LARGE (NEGATIVE); PROTEIN,URINE >600,SEE CONFIRM mg/dL (NEGATIVE)
[2024-03-04 10:07] LABS: SPECIFIC GRAVITIY, URINE > 1.030 (1.003-1.030)
[2024-03-04 10:14] LABS: BACTERIA,URINE Many /HPF (None Seen); RBC,URINE 51-100 /HPF (0-2); SULFOSALICYLIC ACID,URINE 3+ (Negative); WBC,URINE 51-100 /HPF (0-5)
[2024-03-04] MEDS: LIDOCAINE 2% 6 ML JELLY TP ONE (12:59)
[2024-03-04 13:00] VITALS: BP 118/79; PULSE 80; RESP 17; O2SAT 99
[2024-03-04] MEDS: ACETAMINOPHEN 325 MG TABLET PO ONE (13:08)
== END 2024-03-04 13:16 | disposition home or self-care (01) ==
LOC: EMS 08:15
DX: N39.0 Urinary tract infection, site not specified (principal); E78.00 Pure hypercholesterolemia, unspecified; I10 Essential (primary) hypertension; N40.1 Benign prostatic hyperplasia with lower urinary tract symptoms; F17.210 Nicotine dependence, cigarettes, uncomplicated; Z98.890 Other specified postprocedural states
CPT/HCPCS: 80048; 81001; 81002; 82330; 85025; 87077; 87086; 87186; 99284

== ENCOUNTER 2024-03-07 08:13 | Emergency (ER) | payer MEDICARE, OTHER ==
[~2024-03-07] VITALS: Ht 182.9 cm; Wt 84.1 kg
[~2024-03-07 08:13] MED LIST changes: -LIDO700A15 TP
[2024-03-07 10:23] LABS: BASOPHILS % (AUTO) 0.8 % (0.0-2.0); EOSINOPHILS % (AUTO) 4.2 % (1.0-6.0); LYMPHOCYTES % (AUTO) 29.2 % (22.0-44.0); MEAN CORPUSCULAR HEMOGLOBIN 30.4 pg (26.0-34.0); MEAN CORPUSCULAR HGB CONC 34.2 G/dL (31.0-37.0); MEAN CORPUSCULAR VOLUME 89 fL (80-100); MONOCYTES # (AUTO) 0.5 K/uL (0.1-1.0); MONOCYTES % (AUTO) 6.7 % (2.0-9.0); NEUTROPHILS # (AUTO) 4.1 K/uL (1.8-7.7); NEUTROPHILS % (AUTO) 59.1 % (40.0-70.0); PLATELET COUNT (AUTO) 150 K/uL (150-450); RED BLOOD CELL COUNT(AUTO) 4.94 MIL/uL (4.50-5.90); RED CELL DISTRIBUTION WIDTH 14.7 % (11.5-14.5); WHITE BLOOD COUNT (AUTO) 6.9 K/uL (4.5-11.0)
[2024-03-07] MEDS: OxyCODONE HCL/ACETAMINOPHEN 5-325 MG TABLET PO ONE (10:26)
[2024-03-07 10:46] LABS: ANION GAP 10 mmol/L (8-16); CALCIUM, TOTAL 10.6 mg/dL (8.8-10.5); CARBON DIOXIDE 23 mmol/L (22-29); CHLORIDE 106 mmol/L (98-107); CREATININE 1.07 mg/dL (0.60-1.30); GLOMERULAR FILTR. RATE CALC > 60 mL/min (>60); GLUCOSE,RANDOM 127 mg/dL (70-110); POTASSIUM 3.9 mmol/L (3.5-5.1); SODIUM SERUM 139 mmol/L (136-145); UREA NITROGEN, BLOOD 15 mg/dL (7-18)
[2024-03-07] MEDS ORDERED: 0.9% SODIUM CHLORIDE 10 ML SYRINGE IVP ONE (12:57)
[2024-03-07] MEDS ORDERED: IOHEXOL 350 MG/ML 100 ML VIAL ONE (12:57)
[2024-03-07] MEDS ORDERED: SODIUM CHLORIDE 0.9% 0 ML ONE (12:57)
[2024-03-07] MEDS: MORPHINE SULFATE 4 MG/ML SYRINGE IVP ONE (12:58)
[2024-03-07 13:40] VITALS: BP 151/90; PULSE 75; RESP 18; TEMP 98.5; O2SAT 95
[2024-03-07 13:46] LABS: APPEARANCE,URINE CLEAR (CLEAR); BILIRUBIN,URINE NEGATIVE (NEGATIVE); COLOR,URINE YELLOW (YELLOW); GLUCOSE, URINE (UA) NEGATIVE (NEGATIVE); KETONES,URINE NEGATIVE (NEGATIVE); LEUKOCYTE ESTERASE ,URINE TRACE (NEGATIVE); NITRATE,URINE NEGATIVE (NEGATIVE); OCCULT BLOOD,URINE NEGATIVE (NEGATIVE); PH,URINE 5.5 (5.0-8.0); PROTEIN,URINE 30-70 mg/dL (NEGATIVE); SPECIFIC GRAVITIY, URINE 1.029 (1.003-1.030)
[2024-03-07 14:07] LABS: BACTERIA,URINE Few /HPF (None Seen); CALCIUM OXALATE CRYSTALS,UR Moderate /LPF (None Seen); RBC,URINE None Seen /HPF (0-2); SQUAMOUS EPITHELIAL CELL,UR Few /LPF (None Seen)
[2024-03-07] MEDS ORDERED: IOHEXOL 300 MG/ML 100 ML VIAL ONE (14:58)
[2024-03-07] MEDS ORDERED: SODIUM CHLORIDE 0.9% 100 ML ONE (14:58)
[2024-03-08] MEDS ORDERED: IBUP-1492 PO (13:30)
[2024-03-08] MEDS ORDERED: BACL10TA PO (13:31)
== END 2024-03-07 17:00 | disposition home or self-care (01) ==
LOC: EMS 08:13
DX: S39.012A Strain of muscle, fascia and tendon of lower back, initial encounter (principal); K40.90 Unilateral inguinal hernia, without obstruction or gangrene, not specified as recurrent; R39.15 Urgency of urination; I10 Essential (primary) hypertension; E78.00 Pure hypercholesterolemia, unspecified; K74.60 Unspecified cirrhosis of liver; F17.210 Nicotine dependence, cigarettes, uncomplicated; Z87.440 Personal history of urinary (tract) infections; Z79.899 Other long term (current) drug therapy; X58.XXXA Exposure to other specified factors, initial encounter; Y93.89 Activity, other specified; Y92.89 Other specified places as the place of occurrence of the external cause; Y99.8 Other external cause status
CPT/HCPCS: 99285; 74177; 96374; 99406; 80048; 81001; 85025; 36415; J2270; J7050; Q9967

== ENCOUNTER 2024-03-08 11:04 | Emergency (ER) | payer MEDICARE, OTHER ==
[~2024-03-08] VITALS: Ht 188 cm; Wt 68.2 kg
[2024-03-08 11:35] VITALS: BP 137/75; PULSE 88; RESP 18; TEMP 98.2; O2SAT 99
[2024-03-08] MEDS ORDERED: IBUP-1492 PO (13:30)
[2024-03-08] MEDS ORDERED: BACL10TA PO (13:31)
== END 2024-03-08 14:13 | disposition home or self-care (01) ==
LOC: EMS 11:10
DX: G89.29 Other chronic pain (principal); M54.50 Low back pain, unspecified; I10 Essential (primary) hypertension; E78.00 Pure hypercholesterolemia, unspecified; F17.210 Nicotine dependence, cigarettes, uncomplicated; Z79.899 Other long term (current) drug therapy
CPT/HCPCS: 99283; Z7502

== ENCOUNTER 2024-11-06 10:25 | Inpatient (IN) | payer MEDICARE, OTHER ==
[~2024-11-06] VITALS: Ht 185.4 cm; Wt 85.3 kg
[~2024-11-06 10:25] MED LIST changes: +BACL10TA PO; +IBUP-1492 PO; -PHEN100C10 PO; +PHEN100C74 PO
[2024-11-06] MEDS ORDERED: IOHEXOL 350 MG/ML 100 ML VIAL ONE (10:45)
[2024-11-06] MEDS ORDERED: SODIUM CHLORIDE 0.9% 100 ML ONE (10:46)
[2024-11-06 10:53] LABS: RED BLOOD CELL COUNT(AUTO) 4.86 MIL/uL (4.50-5.90); RED CELL DISTRIBUTION WIDTH 14.9 % (11.5-14.5); WHITE BLOOD COUNT (AUTO) 5.5 K/uL (4.5-11.0)
[2024-11-06 10:55] LABS: CALCIUM, TOTAL 10.1 mg/dL (8.8-10.5); CREATININE 1.03 mg/dL (0.60-1.30); GLOMERULAR FILTR. RATE CALC > 60 mL/min (>60); GLUCOSE,RANDOM 87 mg/dL (70-110); SODIUM SERUM 143 mmol/L (136-145); UREA NITROGEN, BLOOD 31 mg/dL (7-18)
[2024-11-06 10:59] LABS: ASPARTATE AMINOTRANSFERASE 17.0 U/L (15-37); TOTAL PROTEIN, SERUM 7.8 g/dL (6.4-8.2)
[2024-11-06] MEDS: MORPHINE SULFATE 2 MG/ML SYRINGE IVP ONE (11:13)
[2024-11-06 11:27] LABS: PLATELET COUNT (AUTO) 98 K/uL (150-450)
[2024-11-06] MEDS ORDERED: ACETAMINOPHEN 325 MG TABLET PO PRN (14:15)
[2024-11-06] MEDS ORDERED: ONDANSETRON HCL 4 MG/2 ML VIAL IVP PRN (14:15)
[2024-11-06] MEDS: HEPARIN SODIUM,PORCINE 5,000 UNITS/ML VIAL SQ SCH (15:02)
[2024-11-06 16:03] VITALS: BP 144/102; PULSE 78; RESP 18; TEMP 97.7; O2SAT 98
[2024-11-06 20:18] VITALS: BP 167/91; PULSE 90; RESP 20; TEMP 98.1; O2SAT 96
[2024-11-06] MEDS: DOCUSATE SODIUM 100 MG CAPSULE PO SCH (21:07)
[2024-11-06] MEDS: MELATONIN 3 MG TABLET PO PRN (21:07)
[2024-11-06 22:03] VITALS: BP 125/70; PULSE 86; RESP 18; TEMP 97.7; O2SAT 98
[2024-11-06] MEDS: RINGERS SOLUTION,LACTATED 1,000 ML IV SCH (23:24)
[2024-11-06] MEDS: PHENYTOIN SODIUM 100 MG ER CAPSULE PO SCH (23:24)
[2024-11-06] MEDS: TAMSULOSIN HCL 0.4 MG CAPSULE PO SCH (23:24)
[2024-11-07 04:41] VITALS: BP 136/88; PULSE 78; RESP 18; TEMP 97.3; O2SAT 94
[2024-11-07] MEDS ORDERED: RINGERS SOLUTION,LACTATED 1,000 ML IV ONE (07:46)
[2024-11-07 08:00] LABS: PLATELET COUNT (AUTO) 106 K/uL (150-450); RED BLOOD CELL COUNT(AUTO) 4.80 MIL/uL (4.50-5.90); RED CELL DISTRIBUTION WIDTH 14.9 % (11.5-14.5); WHITE BLOOD COUNT (AUTO) 4.5 K/uL (4.5-11.0)
[2024-11-07 08:01] LABS: CALCIUM, TOTAL 10.1 mg/dL (8.8-10.5); CREATININE 0.91 mg/dL (0.60-1.30); GLOMERULAR FILTR. RATE CALC > 60 mL/min (>60); GLUCOSE,RANDOM 83 mg/dL (70-110); SODIUM SERUM 138 mmol/L (136-145); UREA NITROGEN, BLOOD 22 mg/dL (7-18)
[2024-11-07 08:17] LABS: APPEARANCE,URINE CLEAR (CLEAR); GLUCOSE, URINE (UA) NEGATIVE (NEGATIVE); LEUKOCYTE ESTERASE ,URINE MODERATE (NEGATIVE); NITRATE,URINE POSITIVE (NEGATIVE); OCCULT BLOOD,URINE SMALL (NEGATIVE); SPECIFIC GRAVITIY, URINE 1.024 (1.003-1.030)
[2024-11-07 08:39] VITALS: BP 133/85; PULSE 62; RESP 18; TEMP 97.3; O2SAT 93
[2024-11-07 08:39] LABS: SQUAMOUS EPITHELIAL CELL,UR Few /LPF (None Seen)
[2024-11-07] MEDS: ATORVASTATIN CALCIUM 20 MG TABLET PO SCH (08:50)
[2024-11-07] MEDS: FINASTERIDE 5 MG TABLET PO SCH (08:51)
[2024-11-07] MEDS ORDERED: SODIUM CHLORIDE 0.9% 1,000 ML ONE (08:56)
[2024-11-07] MEDS: ETHYL ALCOHOL 62% ANTISEPTIC NASAL SANITIZER 0.6 ML AMPUL NASAL ONE (09:11)
[2024-11-07] MEDS: CHLORHEXIDINE GLUCONATE 2% TOWELETTE [2'S/6'S] TP ONE (09:11)
[2024-11-07] MEDS: CefTRIAXone 1 GM/DEXTROSE 50 ML IV SCH (09:15)
[2024-11-07] MEDS ORDERED: MEPERIDINE-PF 25 MG/ML VIAL IVP PRN (10:00)
[2024-11-07] MEDS ORDERED: FentaNYL CITRATE PF 100 MCG/2 ML VIAL IVP PRN (10:00)
[2024-11-07] MEDS ORDERED: LIDOCAINE 1%/EPI 1:200,000/PF 30 ML VIAL ONE (10:00)
[2024-11-07] MEDS ORDERED: LIDOCAINE 1%/EPI 1:200,000/PF 10 ML VIAL ONE (10:00)
[2024-11-07] MEDS: BUPIVACAINE/EPI/PF 0.5% 30 ML VIAL ONE (10:22)
[2024-11-07] MEDS: VANCOMYCIN HCL 1 GM VIAL ONE (10:42)
[2024-11-07] MEDS ORDERED: ACETAMINOPHEN/ISO-OSM 1000 MG/100 ML BOTTLE IV ONE (12:00)
[2024-11-07] MEDS ORDERED: PHENYLEPHRINE HCL IN 0.9% NACL 400 MCG/10 ML SYRINGE IVP ONE (12:00)
[2024-11-07] MEDS ORDERED: MORPHINE SULFATE 4 MG/ML SYRINGE ONE (12:00)
[2024-11-07] MEDS ORDERED: DEXAMETHASONE SOD PHOS 4 MG/ML VIAL ONE (12:00)
[2024-11-07] MEDS ORDERED: SUGAMMADEX SODIUM 200 MG/2 ML VIAL IVP ONE (12:00)
[2024-11-07] MEDS ORDERED: ROCURONIUM BROMIDE 10 MG/ML 5 ML VIAL ONE (12:00)
[2024-11-07] MEDS ORDERED: LIDOCAINE/PF 2% 5 ML VIAL ONE (12:00)
[2024-11-07] MEDS ORDERED: ONDANSETRON HCL 4 MG/2 ML VIAL ONE (12:00)
[2024-11-07] MEDS ORDERED: PROPOFOL 1% 20 ML VIAL IVP ONE (12:00)
[2024-11-07] MEDS ORDERED: MIDAZOLAM HCL 2 MG/2 ML VIAL ONE (12:00)
[2024-11-07] MEDS ORDERED: FentaNYL CITRATE PF 100 MCG/2 ML VIAL ONE (12:00)
[2024-11-07 12:29] VITALS: BP 139/72; PULSE 77; RESP 20; TEMP 97.8; O2SAT 94
[2024-11-07] MEDS: OXYGEN THERAPY IH SCH (20:00)
[2024-11-07 20:13] VITALS: BP 138/74; PULSE 90; RESP 18; TEMP 98.6; O2SAT 94
[2024-11-08 04:11] VITALS: BP 145/89; PULSE 86; RESP 18; TEMP 98.1; O2SAT 94
[2024-11-08 07:00] VITALS: BP 163/89; PULSE 84; RESP 18; TEMP 97.9; O2SAT 93
[2024-11-08] MEDS: HYDROCODONE/ACETAMINOPHEN 5-325 MG TABLET PO PRN (08:03)
[2024-11-08] MEDS ORDERED: KETOROLAC TROMETHAMINE 15 MG/ML VIAL IVP PRN (08:30)
[2024-11-08] MEDS: ACETAMINOPHEN 500 MG TABLET PO SCH (11:57)
[2024-11-08 17:23] VITALS: BP 124/73; PULSE 94; RESP 19; TEMP 98.2; O2SAT 94
[2024-11-08 19:37] VITALS: BP 149/96; PULSE 87; RESP 16; TEMP 97.3; O2SAT 95
[2024-11-09 04:28] VITALS: BP 156/83; PULSE 81; RESP 18; TEMP 97.9; O2SAT 95
[2024-11-09] MEDS: CEPHALEXIN MONOHYDRATE 500 MG CAPSULE PO SCH (08:13)
[2024-11-09 09:08] VITALS: BP 156/92; PULSE 89; RESP 20; TEMP 98.2; O2SAT 98
[2024-11-09 16:00] VITALS: PULSE 81; RESP 16; O2SAT 96
[2024-11-09 20:00] VITALS: BP 149/79; PULSE 82; RESP 18; TEMP 97.3; O2SAT 97
[2024-11-10 04:50] VITALS: BP 140/81; PULSE 87; RESP 18; TEMP 98.1; O2SAT 96
[2024-11-10 09:28] VITALS: BP 174/91; PULSE 71; RESP 18; TEMP 97.7; O2SAT 98
[2024-11-10] MEDS ORDERED: SULF-261 PO (15:17)
[2024-11-10] MEDS ORDERED: DOCU-385 PO (15:18)
[2024-11-10 17:17] VITALS: BP 143/76; PULSE 85; RESP 18; O2SAT 99
[2024-11-10 20:00] VITALS: BP 142/69; PULSE 70; RESP 18; TEMP 98.1; O2SAT 99
[2024-11-11 04:00] VITALS: BP 116/82; PULSE 61; RESP 18; TEMP 97.5; O2SAT 94
[2024-11-11 09:01] VITALS: BP 160/92; PULSE 79; RESP 18; TEMP 98.1; O2SAT 95
== END 2024-11-11 13:30 | DRG 351 ==
LOC: EMS 10:25 → EDH 13:57 → 6S 15:38
PROVIDERS: ADMIT Internal Medicine; ATTEND Internal Medicine
PROC: 0YU50JZ Supplement Right Inguinal Region with Synthetic Substitute, Open Approach (ICD-10-PCS; principal; 2024-11-07 10:15)
DX: K40.30 Unilateral inguinal hernia, with obstruction, without gangrene, not specified as recurrent (principal); K76.6 Portal hypertension; T83.511A Infection and inflammatory reaction due to indwelling urethral catheter, initial encounter; G40.909 Epilepsy, unspecified, not intractable, without status epilepticus; K74.60 Unspecified cirrhosis of liver; N40.0 Benign prostatic hyperplasia without lower urinary tract symptoms; I10 Essential (primary) hypertension; Y84.6 Urinary catheterization as the cause of abnormal reaction of the patient, or of later complication, without mention of misadventure at the time of the procedure; E78.00 Pure hypercholesterolemia, unspecified; Y92.89 Other specified places as the place of occurrence of the external cause; Z87.891 Personal history of nicotine dependence; Z79.899 Other long term (current) drug therapy
CPT/HCPCS: 74177; 76870; 80048; 80076; 81001; 83690; 83735; 85025; 85610; 87077; 87081; 87086; 87186; 96374; 99285; G0238; J0131; J0690; J0696; J1100; J1630; J1644; J1885; J2250; J2270; J2405; J2704; J3010; J3373; J3490; J7030; J7050; J7120